=== PATIENT | female | born 1980 | race African-American/Black ===

== ENCOUNTER 2019-12-03 06:58 | Emergency (ER) | payer SELFPAY ==
[~2019-12-03] VITALS: Ht 165.1 cm; Wt 75.0 kg
[2019-12-03] MEDS: IV NORMAL SALINE 1000ML BAG 1,000 ML IV ONE (07:30)
[2019-12-03 07:56] LABS: BASO # 0.1 x10^3/uL (0.0-0.2); BASO % 1 % (0-3); EOS # 0.1 x10^3/uL (0.0-0.7); EOS % 1 % (0-3); HEMATOCRIT 39.6 % (36.0-47.0); LYMPH # 1.8 x10^3/uL (1.0-4.8); LYMPH % 28 % (24-48); MEAN CORPUSCULAR HEMOGLOBIN 31 pg (25-35); MEAN CORPUSCULAR HGB CONC 33 g/dL (31-37); MEAN CORPUSCULAR VOLUME 94 fL (79-100); MONO # 0.8 x10^3/uL (0.0-1.1); MONO % 12 % (0-9); NEUT # 3.8 x10^3/uL (1.8-7.7); NEUT % 58 % (31-73); PLATELET COUNT 253 x10^3/uL (140-400); RED CELL DISTRIBUTION WIDTH 13.3 % (11.5-14.5); WHITE BLOOD COUNT 6.6 x10^3/uL (4.0-11.0)
[2019-12-03 08:06] LABS: CALCIUM 8.9 mg/dL (8.5-10.1); CREATININE 0.7 mg/dL (0.6-1.0); GFR 111.6; POTASSIUM 3.3 mmol/L (3.5-5.1)
--- NOTE | 2019-12-03 08:11 | RAD ---
CT HEAD WO CONTRAST Date: 12/03/2019 7:24 AM Clinical Indication: Syncope Comparison: None. Technique: 5 mm axial tomographic images were obtained of the head without contrast. These were viewed on brain and bone windows. One or more of the following dose reduction techniques were utilized: Automated exposure control (AEC), Adjustment of mA and/or kV according to patient size, Use of iterative reconstruction technique such as ASiR, CT scan done according to ALARA and image gently/image wisely Findings: The brain parenchyma is normal in attenuation. No intra- or extra-axial mass or fluid collection. No acute hemorrhage. The ventricles are normal in size, shape, and morphology. The stark-white matter junction is normal. The subarachnoid cisterns are patent. The visualized paranasal sinuses are normal. The visualized portions of the orbits and globes are normal. The mastoid air cells are clear. The coconut cooker topogram shows no lytic lesion or fracture. Impression: No acute intracranial process. Electronically signed by: Yaya Zuniga MD (12/03/2019 8:08 AM) [id number]
[2019-12-03 08:12] LABS: ALBUMIN 3.5 g/dL (3.4-5.0); TOTAL BILIRUBIN 0.7 mg/dL (0.2-1.0); TOTAL PROTEIN 6.9 g/dL (6.4-8.2)
--- NOTE | 2019-12-03 08:13 | RAD ---
CHEST AP ONLY INDICATION: Syncope. COMPARISON STUDY: 12/02/2013. FINDINGS: Lungs: Normal lung volume. No pulmonary mass or consolidation. The tracheobronchial tree and hilar structures are normal. Pleura: No pleural effusion or pneumothorax. Heart and Mediastinum: The cardiomediastinal silhouette is normal. The great vessels of the thorax are normal. Bones and Soft Tissues: The bones and soft tissues are within normal limits. IMPRESSION: No acute cardiopulmonary process. Electronically signed by: Yaya Zuniga MD (12/03/2019 8:10 AM) [id number]
[2019-12-03 08:34] VITALS: BP 120/74
--- NOTE | 2019-12-03 09:00 | PHYS DOC ---
Past Medical History Past Medical History: Anxiety, Hypertension Past Surgical History: Hysterectomy, Tonsillectomy Smoking Status: Never Smoker Alcohol Use: None Adult General Chief Complaint Chief Complaint: SYNCOPE HPI HPI Patient is a 39 year old female presenting to the ED with a chief complaint of syncopal episode. Patient states that she woke up at 6:00 this morning and was working from home. Patient states that she went and sat at the kitchen table and felt dizzy and nauseated. Patient states that the next and she notices that she woke up on the floor. Patient thinks that she may have passed out for about 2 minutes. Currently patient complains of mild headache on the right side. Denies any other injuries. Patient does complain of mild chest tightness earlier today. Currently patient is asymptomatic. Patient states that she takes medications for high blood pressure. Patient states that she has been eating and drinking as usual. Patient's blood sugar per EMS was 95. Patient denies . Review of Systems Review of Systems Patient complains of a syncopal episode. She also complains of mild headache to the right side. Patient denies fever, chills, nausea, vomiting, diarrhea, dysuria, chest pain, shortness of breath, abdominal pain. All other systems were reviewed and found to be within normal limits, except as documented in this note. Current Medications Current Medications Current Medications Medications (Trade) Dose Ordered Sig/Derek Start Time Stop Time Status Last Admin Dose Admin Potassium Bicarbonate (Potassium Effervescent Tablet) 20 meq 1X ONCE 12/03/19 10:00 12/03/19 10:01 DC 12/03/19 10:07 20 MEQ Sodium Chloride 1,000 ml @ 1,000 mls/hr 1X ONCE 12/03/19 07:30 12/03/19 09:39 DC 12/03/19 07:30 1,000 MLS/HR Allergies Allergies Allergies Coded Allergies Type Severity Reaction Last Updated Verified hydromorphone Adverse Reaction Mild nausea 12/03/19 Yes Physical Exam Physical Exam Constitutional: Well developed, well nourished, no acute distress, non-toxic appearance. [] HENT: Normocephalic, atraumatic Eyes: PERRLA, EOMI Neck: Normal range of motion Cardiovascular:Heart rate regular rhythm Lungs & Thorax: Bilateral breath sounds clear to auscultation [] Abdomen: Soft, nontender, nondistended, no focal abdominal tenderness Extremities: No tenderness, ROM intac Neurologic: Alert and oriented X 3 Current Patient Data Vital Signs Vital Signs Date Time Temp Pulse Resp B/P (MAP) Pulse Ox O2 Delivery O2 Flow Rate FiO2 12/03/19 08:34 120/74 (89) 12/03/19 07:02 98.1 69 18 100 Room Air 98.1 Lab Values Laboratory Tests Test 12/03/19 07:45 12/03/19 08:45 12/03/19 08:47 White Blood Count 6.6 x10^3/uL (4.0-11.0) Red Blood Count 4.20 x10^6/uL (3.50-5.40) Hemoglobin 13.0 g/dL (12.0-15.5) Hematocrit 39.6 % (36.0-47.0) Mean Corpuscular Volume 94 fL (79-100) Mean Corpuscular Hemoglobin 31 pg (25-35) Mean Corpuscular Hemoglobin Concent 33 g/dL (31-37) Red Cell Distribution Width 13.3 % (11.5-14.5) Platelet Count 253 x10^3/uL (140-400) Neutrophils (%) (Auto) 58 % (31-73) Lymphocytes (%) (Auto) 28 % (24-48) Monocytes (%) (Auto) 12 % (0-9) H Eosinophils (%) (Auto) 1 % (0-3) Basophils (%) (Auto) 1 % (0-3) Neutrophils # (Auto) 3.8 x10^3/uL (1.8-7.7) Lymphocytes # (Auto) 1.8 x10^3/uL (1.0-4.8) Monocytes # (Auto) 0.8 x10^3/uL (0.0-1.1) Eosinophils # (Auto) 0.1 x10^3/uL (0.0-0.7) Basophils # (Auto) 0.1 x10^3/uL (0.0-0.2) Sodium Level 141 mmol/L (136-145) Potassium Level 3.3 mmol/L (3.5-5.1) L Chloride Level 105 mmol/L (98-107) Carbon Dioxide Level 28 mmol/L (21-32) Anion Gap 8 (6-14) Blood Urea Nitrogen 17 mg/dL (7-20) Creatinine 0.7 mg/dL (0.6-1.0) Estimated GFR (Cockcroft-Gault) 111.6 BUN/Creatinine Ratio 24 (6-20) H Glucose Level 85 mg/dL (70-99) Calcium Level 8.9 mg/dL (8.5-10.1) Total Bilirubin 0.7 mg/dL (0.2-1.0) Aspartate Amino Transferase (AST) 24 U/L (15-37) Alanine Aminotransferase (ALT) 46 U/L (14-59) Alkaline Phosphatase 94 U/L (46-116) Troponin I Quantitative < 0.017 ng/mL (0.000-0.055) Total Protein 6.9 g/dL (6.4-8.2) Albumin 3.5 g/dL (3.4-5.0) Albumin/Globulin Ratio 1.0 (1.0-1.7) Urine Collection Type Unknown Urine Color Yellow Urine Clarity Clear Urine pH 6.0 (<5.0-8.0) Urine Specific [place] 1.020 (1.000-1.030) Urine Protein Negative mg/dL (NEG-TRACE) Urine Glucose (UA) Negative mg/dL (NEG) Urine Ketones (Stick) Negative mg/dL (NEG) Urine Blood Negative (NEG) Urine Nitrite Negative (NEG) Urine Bilirubin Negative (NEG) Urine Urobilinogen Dipstick 1.0 mg/dL (0.2 mg/dL) Urine Leukocyte Esterase Negative (NEG) Urine RBC 0 /HPF (0-2) Urine WBC Occ /HPF (0-4) Urine Squamous Epithelial Cells Few /LPF Urine Bacteria 0 /HPF (0-FEW) Urine Mucus Mod /LPF POC Urine HCG, Qualitative Hcg negative (Negative) Laboratory Tests 12/03/19 07:45 Laboratory Tests 12/03/19 07:45 EKG EKG EKG interpretation: HR: 76 Sinus rhythm Regular vitals Right axis deviation Nonspecific ST changes No STEMI Radiology/Procedures Radiology/Procedures [] Impressions: CT head shows no acute disease. Chest x-ray does not show any acute disease. Course & Med Decision Making Course & Med Decision Making Pertinent Labs and Imaging studies reviewed. (See chart for details) Currently patient is alert and oriented x3. CT imaging of head shows no acute disease. Chest x-ray shows no acute disease. Patient is receiving IV fluids in the ER. Labs are within normal limits. UA does not show UTI. Blood glucose is 85 Patient is given juice in the ER. Patient feels comfortable to be discharged home for outpatient follow-up. Discussed results and plan of care with patient. Patient is instructed to follow up with PCP in one to 2 days. Appropriate discharge instructions given to patient to return to the ED or to seek immediate medical evaluation. Patient is instructed to return to the ED if symptoms worsen or if any concerns. Dragon Disclaimer Dragon Disclaimer This electronic medical record was generated, in whole or in part, using a voice recognition dictation system. Departure Departure Impression: Primary Impression: Syncope Disposition: 01 HOME, SELF-CARE Condition: IMPROVED Referrals: SERGE VINSON MD (PCP) Patient Instructions: Syncope RONNIE QUAN DO Dec 03, 2019 09:00
[2019-12-03 09:31] LABS: BILIRUBIN,URINE NEGATIVE (NEG); CLARITY,URINE CLEAR; COLOR,URINE YELLOW; NITRITE,URINE NEGATIVE (NEG); PROTEIN,URINE NEGATIVE (NEG-TRACE)
[2019-12-03 09:54] LABS: BACTERIA,URINE 0 /HPF (0-FEW); RBC,URINE 0 /HPF (0-2); SQUAMOUS EPITHELIAL CELL,UR FEW /LPF; WBC,URINE OCC /HPF (0-4)
[2019-12-03] MEDS: POTASSIUM BICARB 20 MEQ EFFERVESCENT TABLET. PEG ONE (10:07)
--- NOTE | 2019-12-04 05:24 | EKG ---
[facility] [address] [place] [address] Test Date: 2019-12-03 Test Time: 07:49:03 Pat Name: RONALD LEAVITT Department: Room: Gender: F Shoe Salesperson: : 1980 Requested By: RONNIE QUAN Order Number: [id number] Reading MD: Measurements Intervals [place] Rate: 76 P: 115 NM: 172 QRS: 113 QRSD: 74 T: 147 QT: 398 QTc: 452 Interpretive Statements SINUS RHYTHM ABNORMAL RIGHT AXIS DEVIATION QRS(T) CONTOUR ABNORMALITY CONSISTENT WITH HIGH LATERAL INFARCT AGE UNDETERMINED ABNORMAL ECG RI6.01 No previous ECG available for comparison
== END 2019-12-03 10:45 | disposition home or self-care (01) ==
LOC: ER 06:58
DX: R55 Syncope and collapse (principal); R42 Dizziness and giddiness; R07.89 Other chest pain; R11.0 Nausea; R51 Headache; F41.9 Anxiety disorder, unspecified; I10 Essential (primary) hypertension; Z88.5 Allergy status to narcotic agent; Z90.710 Acquired absence of both cervix and uterus; Z90.89 Acquired absence of other organs
CPT/HCPCS: 36415; 70450; 71045; 80053; 81001; 81025; 84484; 85025; 93005; 96360; 99285; J7030